=== PATIENT | male | born 1990 | race Caucasian/White ===

== ENCOUNTER 2017-06-22 23:12 | Emergency (ER) | payer BC ==
[~2017-06-22] VITALS: Ht 180.3 cm; Wt 95.3 kg
[2017-06-22] MEDS ORDERED: HYDROCODONE/APAP 5-325MG TABLET ONE (23:42)
[2017-06-22] MEDS ORDERED: HYDROCODONE/APAP 5-325MG TABLET PO ONE (23:45)
--- NOTE | 2017-06-22 23:45 | NUR ---
Pt taken to CT.
--- NOTE | 2017-06-23 00:05 | NUR ---
Pt states he was playing hockey, had the butt of his stick against his ABD/LUQ, and got his stick jammeded into his ABD. Pt c/o 10/11 pain in LUQ, redness noted at site. Pt denies CP, SOB, dizziness, n/v, no other complaints, minor distress noted.
--- NOTE | 2017-06-23 01:01 | NUR ---
Gave pt RX and d/c instructions, verbalized understanding.
== END 2017-06-23 01:05 | disposition home or self-care (01) ==
LOC: ER 23:19
DX: S29.9XXA Unspecified injury of thorax, initial encounter (principal); X58.XXXA Exposure to other specified factors, initial encounter; Y93.89 Activity, other specified; Y92.89 Other specified places as the place of occurrence of the external cause; Y99.8 Other external cause status
CPT/HCPCS: A4663